=== PATIENT | female | born 2005 | race Hispanic/Latino ===

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

== ENCOUNTER 2024-07-18 23:22 | Emergency (ER) | payer MEDICAID ==
[~2024-07-18] VITALS: Ht 165.1 cm; Wt 68.0 kg
[~2024-07-18 23:22] MED LIST: ACET-66 PO; DICY20TA2 PO; ONDA-104 PO; PANT40TA54 PO
[2024-07-18] MEDS: LACTATED RINGERS 1000ML 1,000 ML IV ONE (23:50)
[2024-07-19] LABS: APPEARANCE,URINE CLEAR (CLEAR); BILIRUBIN,URINE NEGATIVE (NEGATIVE); COLOR,URINE COLORLESS (YELLOW); GLUCOSE, URINE (UA) NEGATIVE (NEGATIVE); KETONES,URINE NEGATIVE (NEGATIVE); LEUKOCYTE ESTERASE ,URINE NEGATIVE Leu/uL (NEGATIVE); NITRATE,URINE NEGATIVE (NEGATIVE); OCCULT BLOOD,URINE NEGATIVE (NEGATIVE); PROTEIN,URINE NEGATIVE (NEGATIVE); UROBILINOGEN,URINE 0.2 mg/dL (0.2-1.0)
[2024-07-19 00:04] LABS: ADD UA MICROSCOPIC NO
[2024-07-19 00:05] LABS: BASOPHILS # (AUTO) 0.05 K/uL (0.00-0.20); BASOPHILS % (AUTO) 0.6 % (0.0-5.0); EOSINOPHILS # (AUTO) 0.14 K/uL (0.00-0.70); EOSINOPHILS % (AUTO) 1.7 % (0.0-8.0); HEMATOCRIT 38.2 % (36-48); IMMATURE GRANULOCYTE ABSOLUTE 0.03 K/uL (0-1); LYMPHOCYTES # (AUTO) 2.1 K/uL (1.0-4.8); LYMPHOCYTES % (AUTO) 25.6 % (21.0-51.0); MEAN CORPUSCULAR HEMOGLOBIN 29.8 pg (27.0-33.0); MEAN CORPUSCULAR HGB CONC 32.7 g/dL (32.0-36.0); MONOCYTES # (AUTO) 0.6 K/uL (0.1-1.0); MONOCYTES % (AUTO) 7.3 % (3.0-13.0); NEUTROPHILS # (AUTO) 5.3 K/uL (1.8-7.7); NEUTROPHILS % (AUTO) 64.4 % (40.0-77.0); PLATELET COUNT (AUTO) 191 K/uL (130-400); RED CELL DISTRIBUTION WIDTH 12.5 % (11.0-15.5); WHITE BLOOD COUNT (AUTO) 8.2 K/uL (4.8-10.8)
[2024-07-19 00:17] LABS: CREATININE 0.6 mg/dL (0.5-1.0); POTASSIUM 4.3 mmol/L (3.5-5.1)
[2024-07-19] MEDS: ondanSETRON 4MG INJ IVP ONE (00:41)
[2024-07-19 01:09] VITALS: BP 110/62; PULSE 64; RESP 16; TEMP 98; O2SAT 100
== END 2024-07-19 01:10 | disposition home or self-care (01) ==
LOC: EDH 23:22
DX: Z32.01 Encounter for pregnancy test, result positive (principal); R10.31 Right lower quadrant pain; R10.2 Pelvic and perineal pain; R11.0 Nausea; Z79.899 Other long term (current) drug therapy
CPT/HCPCS: 99283; 96374; 96361; 82150; 84484; 80048; 83690; 85025; 81003; 81025; 36415; J7120; J2405

== ENCOUNTER 2025-07-09 21:36 | Emergency (ER) | payer MEDICAID ==
[~2025-07-09] VITALS: Ht 165.1 cm; Wt 66.3 kg
[2025-07-09 21:38] VITALS: TEMP 97.4
--- NOTE | 2025-07-09 21:43 | NUR ---
UA CUP PROVIDED
[2025-07-09 22:22] LABS: IMMATURE GRANULOCYTE ABSOLUTE 0.04 K/uL (0-1); NUCLEATED RED BLOOD CELLS 0.0 % (0.0-0.19); PLATELET COUNT (AUTO) 207 K/uL (130-400); RED BLOOD CELL COUNT(AUTO) 5.10 MIL/uL (4.00-5.50); RED CELL DISTRIBUTION WIDTH 12.4 % (11.0-15.5); WHITE BLOOD COUNT (AUTO) 11.5 K/uL (4.8-10.8)
[2025-07-09 22:42] LABS: CREATININE 0.6 mg/dL (0.5-1.0); GLOMERULAR FILTR. RATE CALC 131.0 mL/min (>90); GLUCOSE,RANDOM 106.0 mg/dL (70-105); SODIUM SERUM 139.0 mmol/L (136-145); UREA NITROGEN, BLOOD 11.0 mg/dL (7-18)
[2025-07-09 22:45] LABS: ASPARTATE AMINOTRANSFERASE 20.0 U/L (10-37); TOTAL PROTEIN, SERUM 8.2 g/dL (6.0-8.3)
[2025-07-09] MEDS: FAMOTIDINE 20MG VIAL IV ONE (23:31)
[2025-07-09] MEDS: 0.9%NACL 1000ML 1,000 ML IV ONE (23:31)
[2025-07-09] MEDS ORDERED: ONDA-243 PO (23:35)
[2025-07-09] MEDS ORDERED: FAMO-136 PO (23:35)
--- NOTE | 2025-07-09 23:36 | ERN ---
General Chief Complaint: Nausea,Vomiting,Diarrhea Stated Complaint: FOOD POISONING Time Seen by MD: 21:39 Time Seen by Midlevel: 21:39 Source: patient History of Present Illness Initial Comments The patient is a 20-year-old female with no significant past medical history presenting to the emergency department for evaluation of nausea, vomiting, and abdominal cramping that started earlier this morning. The patient reports eating food at work and believes this may have caused some food poisoning. A co-worker ate the same thing in his also feeling similar symptoms. On arrival she does report feeling slightly improved. Denies any fever, chills, blood in the stool, abdominal pain at this time, or any other symptoms. Allergies: Coded Allergies: No Known Drug Allergies (Unverified Allergy, Unknown, 12/20/22) Home Meds Active Scripts Acetaminophen (Acetaminophen) 500 Mg Tablet, 500 MG PO Q4PRN for 5 Days, #15 TAB Prov:MAYUR PARK 12/20/22 Ondansetron HCl (Ondansetron HCl) 4 Mg Tablet, 4 MG PO TID for 3 Days, #9 TAB Prov:MAYUR PARK 12/20/22 Pantoprazole Sodium (Pantoprazole Sodium) 40 Mg Tablet.dr, 40 MG PO DAILY for 14 Days, #28 TAB Prov:MAYUR PARK 12/20/22 Dicyclomine HCl (Bentyl) 20 Mg Tab, 20 MG PO BID for 5 Days, #10 TAB Prov:MAYUR PARK 12/20/22 Past Medical History Past Medical History: No Pertinent History Past Surgical History: None Female( History) LMP: Jun 18, 2025 ROS Dictation CONSTITUTIONAL: Negative except for HPI HEAD/FACE: Negative except for HPI EENT: Negative except for HPI RESPIRATORY: Negative except for HPI GASTROINTESTINAL/ABDOMINAL: Negative except for HPI GENITOURINARY: Negative except for HPI MUSCULOSKELETAL: Negative except for HPI INTEGUMENTARY: Negative except for HPI NEUROLOGICAL/PSYCH: Negative except for HPI HEMATOLOGIC/LYMPHATIC: Negative except for HPI All Systems Negative, Except as noted above. 13 point review of systems assessed and all negative except for above. Physical Exam Physical Exam Dictation Vital Signs reviewed General Appearance: Alert, oriented x 3, no acute distress, well developed, nou rished. Head and Face: non-traumatic. Eyes: PERRL, pink conjunctivas, eyelid no trauma, anterior chamber with arcus senilis. Ears: Pinnas intact and no signs of trauma or erythema ear canals clear and no discharge TM no erythema Nose: No discharge, no bleeding. Oropharynx: Mouth normal, tongue pink, pharynx clear,no erythema, tonsils no exudates, no abscesses noted, mucous me mbrane moist Neck: Supple, non-tender, no thyromegaly, no masses, no JVD, no bruits Breast:Deferred Chest:No tenderness, no crepitus, no paradoxical movement, no retractions Lungs:Clear, well-ventilated, symmetric, no rales, no wheezing, no rhonchi, no stridor, good breath sounds bilaterally Heart: Regular rate, regular rhythm, no murmur, no gallops Vascular: no peripheral edema, Abdomen: Soft, positive bowel sounds, nondistended, no guarding, nontender, no rebound, no masses no hepatomegaly, no splenomegaly, no Chapin's sign, no hernias. Rectal: Deferred Genital: Deferred Neurological: Normal speech, motor function intact, sensory function intact Musculoskeletal: Neck nontender, full range of motion, back nontender, full range of motion, Extremities: nontender, full range of motion Skin: Color pink, dry, no turgor, no rash, no lacerations, no abrasions, no contusions. Lymphatic: Deferred Results Laboratory and Microbiology Lab and Micro Result Laboratory Tests Test 07/09/25 22:00 White Blood Count 11.5 K/uL (4.8-10.8) H Red Blood Count 5.10 MIL/uL (4.00-5.50) Hemoglobin 15.0 g/dL (12.0-16.0) Hematocrit 47.1 % (36-48) Mean Corpuscular Volume 92.4 fL (80-100) Mean Corpuscular Hemoglobin 29.4 pg (27.0-33.0) Mean Corpuscular Hemoglobin Concent 31.8 g/dL (32.0-36.0) L Red Cell Distribution Width 12.4 % (11.0-15.5) Platelet Count 207 K/uL (130-400) Mean Platelet Volume 11.8 fL (7.5-10.5) H Immature Granulocyte % (Auto) 0.3 % (0-1) Neutrophils (%) (Auto) 87.9 % (40.0-77.0) H Lymphocytes (%) (Auto) 5.4 % (21.0-51.0) L Monocytes (%) (Auto) 4.9 % (3.0-13.0) Eosinophils (%) (Auto) 1.3 % (0.0-8.0) Basophils (%) (Auto) 0.2 % (0.0-5.0) Neutrophils # (Auto) 10.1 K/uL (1.8-7.7) H Lymphocytes # (Auto) 0.6 K/uL (1.0-4.8) L Monocytes # (Auto) 0.6 K/uL (0.1-1.0) Eosinophils # (Auto) 0.15 K/uL (0.00-0.70) Basophils # (Auto) 0.02 K/uL (0.00-0.20) Absolute Immature Granulocyte (auto 0.04 K/uL (0-1) Nucleated Red Blood Cells 0.0 % (0.0-0.19) White Cell Morphology Comment See comments Sodium Level 139 mmol/L (136-145) Potassium Level 3.9 mmol/L (3.5-5.1) Chloride Level 102 mmol/L (101-111) Carbon Dioxide Level 30 mmol/L (21-32) Blood Urea Nitrogen 11 mg/dL (7-18) Creatinine 0.6 mg/dL (0.5-1.0) Glomerular Filtration Rate Calc 131 mL/min (>90) Random Glucose 106 mg/dL (70-105) H Total Calcium 8.9 mg/dL (8.5-10.1) Total Bilirubin 1.4 mg/dL (0.2-1.0) H Direct Bilirubin 0.3 mg/dL (0.0-0.3) Aspartate Amino Transf (AST/SGOT) 20 U/L (10-37) Alanine Aminotransferase (ALT/SGPT) 22 U/L (12-78) Alkaline Phosphatase 89 U/L (50-136) Total Protein 8.2 g/dL (6.0-8.3) Albumin 4.1 g/dL (3.5-5.0) Lipase 34 U/L (16-77) Serum Test, Qualitative NEGATIVE (NEGATIVE) Labs Reviewed?: Yes MDM MDM: Differential diagnosis: Viral gastroenteritis, dehydration, electrolyte abnormality There are no social concerns with this patient. Prescription drug management Prescriptions will include: Zofran and Pepcid Medical management and examination interpretation discussions were had by me with other qualified healthcare professionals as indicated for the patient's care. ED Course Orders Procedure Category Date Status Time Cbc With Differential LAB 07/09/25 Complete 21:39 Basic Metabolic Panel LAB 07/09/25 Complete 21:39 Hepatic Function Panel LAB 07/09/25 Complete 21:39 Lipase LAB 07/09/25 Complete 21:39 0.9%Nacl 1000ml (Ns PHA 07/09/25 Complete 1000ml) 22:00 Ondansetron 4mg Inj PHA 07/09/25 Complete (Zofran 4mg Inj) 22:00 Famotidine 20mg Vial PHA 07/09/25 Complete (Pepcid 20mg Vial) 22:00 Testing, LAB 07/09/25 Complete Serum Hcg 21:38 Ondansetron Odt 4mg PHA 07/09/25 Complete Tab (Zofran 4mg Odt) 22:00 Current Medications Medications (Trade) Dose Ordered Sig/Essence Route PRN Reason Start Time Stop Time Status Last Admin Dose Admin Famotidine (Pepcid 20mg Vial) 20 mg ONCE ONCE IV 07/09/25 22:00 07/09/25 22:01 DC Ondansetron HCl (zoFRAN 4MG INJ) 4 mg ONCE ONCE IVP 07/09/25 22:00 07/09/25 22:00 DC Ondansetron HCl (zoFRAN 4MG ODT) 4 mg ONCE ONCE SL 07/09/25 22:00 07/09/25 22:01 DC 07/09/25 22:26 Sodium Chloride 1,000 ml @ 0 mls/hr ONCE ONCE IV 07/09/25 22:00 07/09/25 22:01 DC Vital Signs Date Time Temp Pulse Resp B/P (MAP) Pulse Ox O2 Delivery O2 Flow Rate FiO2 07/09/25 21:38 97.3 102 20 126/74 100 Room Air DX & DISP Disposition: Discharge Departure Impression: Primary Impression: Viral gastroenteritis Condition: Stable Scripts Famotidine (Pepcid) 20 Mg Tablet 1 TAB PO BID for 7 Days, #14 TAB 0 Refills Prov: NEERAJ SERVIN 07/09/25 Ondansetron (Ondansetron Odt) 4 Mg Tab.rapdis 4 MG PO BID for 7 Days, #14 TAB Prov: NEERAJ SERVIN 07/09/25 Referrals: NONE (PCP) Time of Disposition: 23:33 I have reviewed the case, and I agree with, Diagnosis and Plan I performed the substantive portion of the visit. I have reviewed and personally made and approve the management plan that is documented in the note by myself or the DAYNE. I acknowledge for responsibility for the patient's management plan. NEERAJ SERVIN Jul 09, 2025 23:36
[2025-07-09 23:38] VITALS: BP 110/57; PULSE 72; RESP 18; O2SAT 100
== END 2025-07-10 00:29 | disposition home or self-care (01) ==
LOC: EDH 21:36
DX: A08.4 Viral intestinal infection, unspecified (principal); Z79.899 Other long term (current) drug therapy
CPT/HCPCS: 99283; 96374; 96361; 80076; 80048; 84703; 83690; 85025; 36415; J3490; J7030; J1308